=== PATIENT | male | born 1990 | race Caucasian/White ===

== ENCOUNTER 2024-04-26 13:15 | Outpatient (CLI) | payer OTHER, SELFPAY ==
--- NOTE | ~2024-04-26 | CT_ITS ---
EXAMINATION: CT abdomen pelvis w con DATE: 04/26/2024 13:48 INDICATION: Rectal pain TECHNIQUE: Computed tomography (CT) of the abdomen and pelvis was performed with 100 mL Omnipaque-350 intravenous contrast. Automated exposure control and iterative reconstruction technique were employe d. The dose-length product was 1083.79 mGy-cm. COMPARISON: None FINDINGS: Lung bases are clear. Heart size is normal. No pericardial or pleural effusion. Liver, gallbladder, s pleen, pancreas, bilateral adrenal glands and kidneys are normal. Decompressed bladder is normal. Connelly els including the appendix are normal. No free intraperitoneal gas or fluid. No pathologically enlarg ed abdominal or pelvic lymphadenopathy. Bones are unremarkable. IMPRESSION: 1. No acute intra-abdominal/pelvic process. Reviewed, dictated and finalized at location B. [employer]
== END 2024-04-26 13:16 | disposition home or self-care (01) ==
LOC: MICIMG 13:19
PROVIDERS: PCP Registered Nurse; Visit Provider Registered Nurse
DX: K62.89 Other specified diseases of anus and rectum (principal)
CPT/HCPCS: 74177; Q9967